=== PATIENT | male | born 1970 | race African-American/Black ===

== ENCOUNTER 2021-07-07 18:35 | Observation (INO) ==
[2021-07-07 19:28] LABS: Basophils % 0.5 % (0.0-0.8); Eosinophils % 0.7 % (0.00-10.9); Hematocrit 37.2 VOL% (42.0-52.0); Immature Granulocytes % 0.2 %; Immature Granulocytes Absolute 0.01 #; Lymphocytes % 32.8 % (21.2-54.2); Mean Corpuscular HGB Conc 32.3 GM/DL (32-36); Mean Corpuscular Volume 85.1 FL (87-102); Mean Platelet Volume 10.2 FL (9.6-12.0); Monocytes # 0.6 10*3/uL (0.11-0.8); Monocytes % 10.6 % (1.7-12.7); Neutrophils % 55.2 % (38.7-73.9); Platelet Count 149 T/CUMM (130-400); Red Blood Count 4.37 MC/CUMM (3.8-5.5); Red Cell Distribution Width 20.8 % (9.3-17.3)
[2021-07-07 19:41] LABS: Bacteria,Urine Occasional /HPF (Few); RBC,Urine <1 /HPF (0-4)
[2021-07-07 19:42] LABS: Barbiturates Screen,Urine Negative (Negative); Benzodiazepines Screen,Urine Negative (Negative); Cannabinoid Screen,Urine Negative (Negative); Opiate Screen,Urine Negative (Negative); Phencyclidine Screen,Urine Negative (Negative)
[2021-07-07 19:42] LABS: Urine Appearance Clear (Clear); Urine Color Yellow (Yellow)
[2021-07-07 19:43] LABS: Bilirubin,Urine Negative (Negative); Blood, Urine Trace mg/dL (Negative); Glucose,Urine (UA) Negative (Negative); Ketones,Urine Negative (Negative); Nitrite,Urine Negative (Negative); Protein,Urine 100 mg/dL (Negative); Urine Specific Gravity <= 1.005 (1.001-1.035); Urine Urobilinogen 0.2 eU/dL (<2.0)
[2021-07-07 19:46] LABS: Salicylate < 2.8 MG/DL (2.8-20)
[2021-07-07 19:47] LABS: Acetaminophen < 2.0 UG/ML (10-30)
[2021-07-07 19:55] LABS: Albumin 3.6 G/DL (3.4-5.0); Bilirubin,Total 1.5 MG/DL (0.20-1.00); Osmolality,Calculated 278.3 MOS/KG (273-304); Potassium 3.2 MMOL/L (3.5-5.1); Total Protein 8.2 G/DL (6.4-8.2)
[2021-07-07] MEDS ORDERED: ONDANSETRON 4 MG/2 ML VIAL IV PRN (20:52)
[2021-07-07] MEDS ORDERED: POTASSIUM CHLORIDE 20 MEQ TABLET PO STA (20:52)
[2021-07-07] MEDS ORDERED: hydrALAZINE 20 MG/1 ML VIAL IV PRN (20:52)
[2021-07-07] MEDS ORDERED: ACETAMINOPHEN 325 MG TABLET PO PRN (20:52)
[2021-07-07] MEDS ORDERED: GLUCAGON 1 MG VIAL IM PRN (20:52)
[2021-07-07] MEDS ORDERED: DEXTROSE 10% 250 ML BAG IV PRN (21:02)
[2021-07-08] MEDS: LOSARTAN 50 MG TABLET PO SCH ×2 (01:53→10:19)
[2021-07-08] MEDS ORDERED: LORazepam 2 MG/1 ML VIAL IV PRN (06:30)
[2021-07-08 06:41] LABS: Calcium 8.1 MG/DL (8.5-10.1); Osmolality,Calculated 285.6 MOS/KG (273-304); Potassium 3.5 MMOL/L (3.5-5.1)
[2021-07-08] MEDS ORDERED: THIAMINE 100 MG TABLET PO SCH (09:00)
[2021-07-08] MEDS ORDERED: FOLIC ACID 1 MG TABLET PO SCH (09:00)
[2021-07-08] MEDS ORDERED: PANTOPRAZOLE 40 MG TABLET PO SCH (09:00)
[2021-07-08 17:52] VITALS: BP 168/84
[2021-07-08] MEDS ORDERED: ENOXAPARIN 40 MG/0.4 ML SYRINGE SUBCUT SCH (21:00)
== END 2021-07-08 17:54 ==
LOC: N.ED 18:35 → N.EDINP 18:35 → N.3E 22:33
PROVIDERS: ADMIT Internal Medicine Geriatric Medicine; ATTEND Internal Medicine Geriatric Medicine